=== PATIENT | female | born 1960 | race Native Hawaiian/Other Pacific Islander ===

== ENCOUNTER 2019-02-10 09:44 | Outpatient (CLI) | payer OTHER ==
[~2019-02-10 09:44] MED LIST: ADIPEX PO; ADIPEX-P37.5 M1 OR; BENZONATATE200 MG PO; CEFD300C2 PO; FLUT0.05 NAS; HYDR25TA60 PO; MEDROL DOSEPAK4 MG OR
== END 2019-02-10 22:46 | disposition home or self-care (01) ==
LOC: LABW 09:44 → RAD 09:44 → LABW 22:46
DX: K74.69 Other cirrhosis of liver (principal); K75.89 Other specified inflammatory liver diseases; M13.88 Other specified arthritis, other site; S19.89XA Other specified injuries of other specified part of neck, initial encounter; S39.82XA Other specified injuries of lower back, initial encounter; S49.80XA Other specified injuries of shoulder and upper arm, unspecified arm, initial encounter; F32.89 Other specified depressive episodes
CPT/HCPCS: 36415; 80076; 82565; 85610

== ENCOUNTER 2020-07-28 12:48 | Outpatient (CLI) | payer BC, OTHER ==
[2020-07-28 13:47] LABS: PLATELET COUNT 137 K/uL (152-353)
[2020-07-28 14:05] LABS: POTASSIUM 3.5 mmol/L (3.6-5.2)
== END 2020-07-28 20:23 | disposition home or self-care (01) ==
LOC: RAD 12:48
PROVIDERS: ATTEND Family Medicine
DX: U07.1 COVID-19 (principal)
CPT/HCPCS: 36415; 80053; 85027; 85379; 86140; 87040